=== PATIENT | female | born 1975 | race Hispanic/Latino ===

== ENCOUNTER → 2023-08-13 | Outpatient (REF) | payer SELFPAY ==
[~2023-08-13] MED LIST: LIDOCAINE VISC 2% SOLN 15 ML UDC ONE
== END ==
LOC: WCC 13:11
PROVIDERS: ATTEND Nurse Practitioner Family
DX: T81.31XA Disruption of external operation (surgical) wound, not elsewhere classified, initial encounter (principal); T81.30XA Disruption of wound, unspecified, initial encounter